=== PATIENT | female | born 1995 | race Caucasian/White ===

== ENCOUNTER 2021-05-10 09:39 | Emergency (ER) | payer BC, OTHER ==
[~2021-05-10] VITALS: Ht 170.2 cm; Wt 95.0 kg
[~2021-05-10 09:39] MED LIST: AZIT250T PO; LIDO20SO PO; ONDA8TAB9 PO; PHEN-786 PO
[2021-05-10 09:50] VITALS: BP 121/67
[2021-05-10 10:26] LABS: BASOPHILS # (AUTO) 0.1 X10'3 (0-0.2); BASOPHILS % (AUTO) 0.9 % (0-1); EOSINOPHILS # (AUTO) 0.1 X10'3 (0-0.9); EOSINOPHILS % (AUTO) 1.1 % (0-6); LYMPHOCYTES # (AUTO) 1.7 X10'3 (1.1-4.8); MEAN CORPUSCULAR HEMOGLOBIN 29.5 PG (27.0-31.0); MEAN CORPUSCULAR HGB CONC 34.3 g/dL (33.0-36.5); MEAN CORPUSCULAR VOLUME 85.9 FL (78-98); MEAN PLATELET VOLUME 8.3 FL (7.4-10.4); MONOCYTES # (AUTO) 0.5 X10'3 (0-0.9); MONOCYTES % (AUTO) 6.9 % (2-12); NEUTROPHILS # (AUTO) 5.4 X10'3 (1.8-7.7); NEUTROPHILS % (AUTO) 69.1 % (42-75); PLATELET COUNT 277 X10'3 (140-440); RED BLOOD COUNT 4.42 X10'6 (4.20-5.60); RED CELL DISTRIBUTION WIDTH 12.9 % (11.5-14.5); WHITE BLOOD COUNT 7.8 X10'3 (4.5-11.0)
[2021-05-10 10:52] LABS: ALANINE AMINOTRANSFERASE 38 U/L (12-78); ALBUMIN 3.7 G/DL (3.4-5.0); ALBUMIN/GLOBULIN RATIO 1.2 (1.1-1.5); ALKALINE PHOSPHATASE 42 IU/L (46-116); ANION GAP 9 (8-16); ASPARTATE AMINO TRANSFERASE 21 U/L (10-37); BILIRUBIN,TOTAL 0.5 MG/DL (0.1-1.0); BLOOD UREA NITROGEN 13 MG/DL (7-18); BUN/CREATININE RATIO 17.3 (6.6-38.0); CALCIUM 8.7 MG/DL (8.5-10.1); CHLORIDE 105 MMOL/L (99-107); CREATININE 0.75 MG/DL (0.40-0.90); GLUCOSE 95 MG/DL (70-104); SODIUM 137 MMOL/L (135-145); TOTAL CARBON DIOXIDE 22.9 MMOL/L (24-32); TOTAL PROTEIN 6.8 G/DL (6.4-8.2); eGFR > 90 ML/MIN
[2021-05-10 11:17] LABS: LIPASE 93 U/L (73-393)
[2021-05-10 11:24] LABS: CLARITY,URINE CLEAR (Clear); COLOR,URINE YELLOW (Yellow); GLUCOSE, URINE NEGATIVE (Neg); KETONES,URINE NEGATIVE (Neg); LEUKOCYTE ESTERASE ,URINE NEGATIVE (Neg); NITRITES, URINE NEGATIVE (Neg); OCCULT BLOOD,URINE LARGE (Neg); PH,URINE 5.5 (4.8-8.0); PROTEIN,URINE NEGATIVE (Neg); UROBILINOGEN,URINE 0.2 E.U/dL (0.2-1.0)
[2021-05-10 11:24] LABS: BETA HCG,QUANTITATIVE 28050 mIU/ml
[2021-05-10 11:26] LABS: UA COLLECTION TYPE CLN CATCH MIDSTREAM
[2021-05-10 11:30] LABS: URINE HCG POSITIVE (NEG)
[2021-05-10 11:31] LABS: BACTERIA,URINE NONE SEEN /HPF (Neg); MUCUS STRANDS NONE SEEN /LPF (Neg); RBC,URINE 0-2 /HPF (0-2); SQUAMOUS EPITHELIAL CELL,UR MODERATE /LPF (FEW); WBC,URINE 0-4 /HPF (0-4)
== END 2021-05-10 11:44 | disposition home or self-care (01) ==
LOC: ER 09:40 → EEVIPCON 09:40 → ER 11:44
DX: O46.8X1 Other antepartum hemorrhage, first trimester (principal); Z3A.01 Less than 8 weeks gestation of pregnancy; Z79.899 Other long term (current) drug therapy
CPT/HCPCS: 36415; 76801; 80053; 81001; 81025; 83690; 84702; 85025; 99284

== ENCOUNTER 2022-08-24 07:21 | Emergency (ER) | payer BC, MEDICAID ==
[~2022-08-24] VITALS: Ht 170.2 cm; Wt 210.0 kg
[2022-08-24 09:08] VITALS: BP 102/44
[2022-08-24 10:36] LABS: URINE HCG NEGATIVE (NEG)
[2022-08-24 10:38] LABS: CLARITY,URINE SLIGHTLY CLOUDY (Clear); COLOR,URINE YELLOW (Yellow); GLUCOSE, URINE NEGATIVE (Neg); KETONES,URINE NEGATIVE (Neg); LEUKOCYTE ESTERASE ,URINE NEGATIVE (Neg); NITRITES, URINE NEGATIVE (Neg); OCCULT BLOOD,URINE NEGATIVE (Neg); PROTEIN,URINE NEGATIVE (Neg); UROBILINOGEN,URINE 0.2 E.U/dL (0.2-1.0)
[2022-08-24 10:46] LABS: UA COLLECTION TYPE CLN CATCH MIDSTREAM
[2022-08-24 10:47] LABS: BACTERIA,URINE FEW /HPF (Neg); RBC,URINE NONE SEEN /HPF (0-2); SQUAMOUS EPITHELIAL CELL,UR MODERATE /LPF (FEW); WBC,URINE 0-4 /HPF (0-4)
[2022-08-24 10:48] LABS: MUCUS STRANDS MODERATE /LPF (Neg)
--- NOTE | 2022-08-24 11:04 | NUR ---
PER ANALISA MOORE, NO NEED FOR IV AT THIS TIME.
--- NOTE | 2022-08-24 11:58 | NUR ---
Patient walked out of the room before I even got to her room to give discharge instruction. Patient did not have any IV inserted since she checked in.
== END 2022-08-24 12:04 | disposition home or self-care (01) ==
LOC: ER 07:21
DX: M54.6 Pain in thoracic spine (principal); Z79.899 Other long term (current) drug therapy; Z79.1 Long term (current) use of non-steroidal anti-inflammatories (NSAID)
CPT/HCPCS: 81001; 81025; 99283